=== PATIENT | female | born 1995 | race American Indian/Alaskan Native ===

== ENCOUNTER 2017-04-01 01:26 | Inpatient (IN) | payer MEDICAID, OTHER ==
[2017-04-01] MEDS ORDERED: Sodium Chloride 0.9% 1,000 ML IV ONE ×5 (02:27→10:10)
[2017-04-01 02:41] LABS: BASO % 0.7 % (0.0-2.0); EOS % 0.8 % (0.0-4.0); HEMATOCRIT 33.5 % (34.0-47.0); LYMPH # 2.1 K/uL (1.0-4.3); LYMPH % 33.5 % (20.0-40.0); MEAN CELL VOLUME 92.5 fL (81.0-99.0); MEAN CORPUSCULAR HGB CONC 32.5 g/dL (33.0-37.0); MEAN PLATELET VOLUME 7.6 fL (7.2-11.7); MONO # 0.8 K/uL (0.0-0.8); MONO % 12.8 % (0.0-10.0); RED CELL DISTRIBUTION WIDTH 14.9 % (11.5-14.5); WHITE BLOOD COUNT 6.3 K/uL (4.8-10.8)
[2017-04-01] MEDS ORDERED: Sodium Chloride 0.9% 1,000 ML ONE ×3 (02:42→06:34)
[2017-04-01] MEDS ORDERED: Iohexol 240 (50 ml) PO STA (02:44)
[2017-04-01 02:46] LABS: RBC URINE 3 /hpf (0-3); URINE BACTERIA RARE (<OCC); URINE BILIRUBIN NEGATIVE (NEGATIVE); URINE BLOOD NEGATIVE (NEGATIVE); URINE COLOR Amber (YELLOW); URINE GLUCOSE (UA) NORMAL (Normal); URINE KETONE TRACE mg/dL (NEGATIVE); URINE LEUKOCYTE ESTERASE 1+ Leu/uL (Negative); URINE PROTEIN 1+ mg/dL (NEGATIVE); WBC URINE 11 /hpf (0-5)
[2017-04-01 02:56] LABS: CHLORIDE 105 mmol/L (98-107); SODIUM 140 mmol/L (132-148)
[2017-04-01 02:57] LABS: POTASSIUM 3.7 mmol/L (3.6-5.2)
[2017-04-01 02:59] LABS: ALB/GLOB RATIO 0.9 (1.0-2.1); ALKALINE PHOSPHATASE 65 U/L (38-126); ALT/SGPT 21 U/L (9-52); AST/SGOT 20 U/L (14-36); BILIRUBIN,TOTAL 0.6 mg/dL (0.2-1.3); BLOOD UREA NITROGEN 5 mg/dL (7-17); CARBON DIOXIDE 25 mmol/L (22-30); GFR AFRICAN-AMERICAN > 60; GLUCOSE,RANDOM 86 mg/dL (65-105); TOTAL PROTEIN 7.8 g/dL (6.3-8.3)
--- NOTE | 2017-04-01 03:33 | C.PDOC ---
History Of Present Illness 21 y/o female with a hx of irregular menses and LMP late February, presents to the ER c/o sudden onset RLQ pain that began 14:00 this afternoon. Pain is non- radiating and constant associated with mild nausea. Patient denies vomiting, fever, chills, urinary symptoms, vaginal bleeding, or discharge. Time Seen by Provider: 04/01/17 01:30 Chief Complaint (Nursing): Abdominal Pain History Per: Patient History/Exam Limitations: no limitations Onset/Duration Of Symptoms: Hrs (14:00) Current Symptoms Are (Timing): Still Present Severity: Mild Location Of Pain/Discomfort: RLQ Radiation Of Pain To:: None Quality Of Discomfort: "Pain" Associated Symptoms: Nausea. denies: Fever, Chills, Vomiting Exacerbating Factors: None Alleviating Factors: None Recent travel outside of the [place]: No Additional History Per: Patient Abnormal Vaginal Bleeding: No Past Medical History Reviewed: Historical Data, Nursing Documentation, Vital Signs Vital Signs: Last Vital Signs Temp 97.4 F L 04/04/17 07:35 Pulse 62 04/04/17 07:35 Resp 18 04/04/17 07:35 BP 94/57 L 04/04/17 07:35 Pulse Ox 95 04/04/17 07:35 - Medical History PMH: Hyperthyroidism, Migraine, Seizures Family History: States: Unknown Family Hx - Social History Hx Tobacco Use: No Hx Alcohol Use: Yes Hx Substance Use: Yes - Immunization History Hx Tetanus Toxoid Vaccination: No Hx Influenza Vaccination: No Hx Pneumococcal Vaccination: No Review Of Systems Constitutional: Negative for: Fever, Chills Gastrointestinal: Positive for: Nausea, Abdominal Pain. Negative for: Vomiting Genitourinary: Negative for: Dysuria, Hematuria, Vaginal Discharge, Vaginal Bleeding Physical Exam - Physical Exam Appears: Non-toxic, In Acute Distress (Uncomfortable) Skin: Warm, Dry Head: Atraumatic, Normacephalic Cardiovascular: Rhythm Regular Respiratory: Normal Breath Sounds, No Rales, No Rhonchi, No Wheezing Gastrointestinal/Abdominal: Bowel Sounds (Normal bowel sounds), Soft, Tenderness (Bilateral lower abdominal pain, right greater than left) Back: Normal Inspection, No CVA Tenderness Pelvic: Vaginal Discharge (White discharge in the vault), Cervical Motion Tenderness (Mild), Adnexal Tenderness (Moderate right adnexal tenderness) Neurological/Psych: Oriented x3, Normal Speech, Normal Cognition ED Course And Treatment - Laboratory Results Result Diagrams: 04/02/17 06:16 04/02/17 06:16 O2 Sat by Pulse Oximetry: 98 (RA) Pulse Ox Interpretation: Normal - CT Scan/US UA Pelvic Other Rad Studies (CT/US): Interpreted By Me, Read By Radiologist CT/US Interpretation: EXAM: US Pelvis Complete, Transabdominal. EXAM DATE/TIME : 04/01/2017 3:32 AM. CLINICAL HISTORY: 21 years old, female; Pain; Pelvic pain; Additional info: Right adnexal tenderness. TECHNIQUE: Real-time transabdominal pelvic ultrasound (complete) with image documentation. COMPARISON: No relevant prior studies available. FINDINGS: Only transabdominal imaging was performed. The uterus measures 7 by 4 x 4 centimeters and is normal. The endometrium measures 11 mm. There is a large 16.8 x 9.7 x 14.2 cm complex cystic structure in the right adnexa containing internal. septations. There is avascular internal debris. There appears to be a thin rim of tissue however there. are no flow images of this region. A normal right ovary is not identified. The left ovary is normal and measures 3 x 2 x 3 cm. Color-flow vascular waveforms were. demonstrated to the left ovary. There is no significant free fluid. IMPRESSION: Large complex cystic structure right adnexa as described above. Normal right ovary not identified. This may represent a complex right ovarian cyst. Right ovarian torsion cannot be excluded excluded. as there are no images obtained demonstrating blood flow to right ovarian tissue. Paraovarian cyst. and abscess could also have a similar appearance. Transvaginal imaging was not able to be. performed. Consultation with [facility] CLE[facility]ER is recommended. Patient also reportedly had beta-hCG level. less than 2.4. Follow beta hCG levels are also recommended. Medical Decision Making Medical Decision Making: Impression: 21 y/o female c/o sudden onset RLQ pain that began 2pm this afternoon. Plans: * Labs * CT Abd/pel * Morphine * Omnipaque * US preg * IV fluids * US transvag * Admittance 616 am anjana mcgraw received approx 608 am; Dr Freitas called for consult. Dr Freitas at bedside 632 am Disposition Discussed With .: Bora Freitas Doctor Will See Patient In The: Hospital - Disposition Disposition: HOSPITALIZED Disposition Time: 06:47 Condition: SERIOUS - Clinical Impression Clinical Impression: Right ovarian cyst - Scribe Statement The provider has reviewed the documentation as recorded by the Scribe Antonio interiano All medical record entries made by the Scribe were at my direction and personally dictated by me. I have reviewed the chart and agree that the record accurately reflects my personal performance of the history, physical exam, medical decision making, and the department course for this patient. I have also personally directed, reviewed, and agree with the discharge instructions and disposition. Decision To Admit - Pt Status Changed To: Hospital Disposition Of: Inpatient - Admit Certification Admit to Inpatient:: After my assessment, the patient will require hospitalization for at least two midnights. This is because of the severity of symptoms shown, intensity of services needed, and/or the medical risk in this patient being treated as an outpatient. - InPatient: Physician Admission Certification:: pt requires surgery to assess mass and for torsion - . Bed Request Type: [facility] CLE[facility] Admitting Physician: Otilia Zepeda Patient Diagnosis: Right ovarian cyst
[2017-04-01] MEDS ORDERED: Iohexol 350mg/ml 100 ML ONE (04:36)
[2017-04-01] MEDS ORDERED: Iohexol 240 (50 ml) PO ONE (05:21)
[2017-04-01] MEDS ORDERED: Iohexol 240 (50 ml) ONE (05:33)
--- NOTE | 2017-04-01 06:06 | US ---
EXAM: US Pelvis Complete, Transabdominal EXAM DATE/TIME: 04/01/2017 3:32 AM CLINICAL HISTORY: 21 years old, female; Pain; Pelvic pain; Additional info: Right adnexal tenderness TECHNIQUE: Real-time transabdominal pelvic ultrasound (complete) with image documentation. COMPARISON: No relevant prior studies available. FINDINGS: Only transabdominal imaging was performed. The uterus measures 7 by 4 x 4 centimeters and is normal. The endometrium measures 11 mm. There is a large 16.8 x 9.7 x 14.2 cm complex cystic structure in the right adnexa containing internal septations. There is avascular internal debris. There appears to be a thin rim of tissue however there are no flow images of this region. A normal right ovary is not identified. The left ovary is normal and measures 3 x 2 x 3 cm. Color-flow vascular waveforms were demonstrated to the left ovary. There is no significant free fluid. IMPRESSION: Large complex cystic structure right adnexa as described above. Normal right ovary not identified. This may represent a complex right ovarian cyst. Right ovarian torsion cannot be excluded excluded as there are no images obtained demonstrating blood flow to right ovarian tissue. Paraovarian cyst and abscess could also have a similar appearance. Transvaginal imaging was not able to be performed. Consultation with [facility] [employer] [employer] is recommended. Patient also reportedly had beta-hCG level less than 2.4. Follow beta hCG levels are also recommended.
--- NOTE | 2017-04-01 06:52 | CP.PCM.HP ---
History of Present Illness - History of Present Illness History of Present Illness: 21 [id number] came with c/o abdominal pain started at 2 pm, got worse with time.in the night it was 10/10 so patient came to er. no n/v.no discharge no other com. obhx 1 x pmh den med none All amoxcillin psh knee surgery soc smoking+ sono 16.8 x 9.7x 14.2 cm complex cystic strucure in right adenxa torsion cannot ruled out abd soft, tender+, +guarding Present on Admission - Present on Admission Any Indicators Present on Admission: No History of DVT/PE: No History of Uncontrolled Diabetes: No Urinary Catheter: No Decubitus Ulcer Present: No Review of Systems - Gastrointestinal Gastrointestinal: Abdominal Pain Past Patient History - Infectious Disease Hx of Infectious Diseases: None - Past Social History Smoking Status: Light Smoker < 10 Cigarettes Daily - NEUROLOGICAL Hx Migraine: Yes Hx Seizures: Yes - ENDOCRINE/METABOLIC Hx Hyperthyroidism: Yes - PSYCHIATRIC Hx Substance Use: Yes - SURGICAL HISTORY Hx Orthopedic Surgery: Yes (left knee) Meds Allergies/Adverse Reactions: Allergies Allergy/AdvReac Type Severity Reaction Status Date / Time amoxicillin Allergy Verified 04/01/17 01:58 strawberry Allergy Verified 04/01/17 01:58 Physical Exam - Constitutional Appears: In Acute Distress - Exam External exam: NORMAL EXTERNAL EXAM Speculum exam: NORMAL SPECULUM EXAM Bimanual exam: Adenexal Mass, Cervical Motion Tendernes, Uterine Tenderness - Extremities Exam Extremities exam: Positive for: normal inspection Results - Vital Signs Recent Vital Signs: Last Vital Signs Temp 97.6 F 04/01/17 05:20 Pulse 71 04/01/17 05:52 Resp 18 04/01/17 05:52 BP 111/69 04/01/17 05:52 Pulse Ox 98 04/01/17 06:34 - Labs Result Diagrams: 04/01/17 02:35 04/01/17 02:35 Labs: Laboratory Results - last 24 hr 04/01/17 04/01/17 04/01/17 02:27 02:35 02:35 WBC 6.3 RBC 3.62 L Hgb 10.9 L Hct 33.5 L MCV 92.5 MCH 30.0 MCHC 32.5 L RDW 14.9 H Plt Count 329 MPV 7.6 Neut % (Auto) 52.2 Lymph % (Auto) 33.5 [place] % (Auto) 12.8 H Eos % (Auto) 0.8 Baso % (Auto) 0.7 Neut # 3.3 Lymph # 2.1 [place]ett # 0.8 Eos # 0.0 Baso # 0.0 Sodium 140 Potassium 3.7 Chloride 105 Carbon Dioxide 25 Anion Gap 14 BUN 5 L Creatinine 0.7 Est GFR ( Amer) > 60 Est GFR (Non-Af Amer) > 60 Random Glucose 86 Calcium 9.0 Total Bilirubin 0.6 AST 20 ALT 21 Alkaline Phosphatase 65 Total Protein 7.8 Albumin 3.8 Globulin 4.1 H Albumin/Globulin Ratio 0.9 L Beta HCG, Quant Urine Color Marie Urine Clarity Hazy Urine pH 5.0 Ur Specific [place] 1.025 Urine Protein 1+ H Urine Glucose (UA) Normal Urine Ketones Trace Urine Blood Negative Urine Nitrate Negative Urine Bilirubin Negative Urine Urobilinogen 2.0 H Ur Leukocyte Esterase 1+ H Urine WBC (Auto) 11 H Urine RBC (Auto) 3 Ur Squamous Epith Cells 22 H Urine Bacteria Rare 04/01/17 02:53 WBC RBC Hgb Hct MCV MCH MCHC RDW Plt Count MPV Neut % (Auto) Lymph % (Auto) [place] % (Auto) Eos % (Auto) Baso % (Auto) Neut # Lymph # [place] # Eos # Baso # Sodium Potassium Chloride Carbon Dioxide Anion Gap BUN Creatinine Est GFR ( Amer) Est GFR (Non-Af Amer) Random Glucose Calcium Total Bilirubin AST ALT Alkaline Phosphatase Total Protein Albumin Globulin Albumin/Globulin Ratio Beta HCG, Quant < 2.39 Urine Color Urine Clarity Urine pH Ur Specific [place] Urine Protein Urine Glucose (UA) Urine Ketones Urine Blood Urine Nitrate Urine Bilirubin Urine Urobilinogen Ur Leukocyte Esterase Urine WBC (Auto) Urine RBC (Auto) Ur Squamous Epith Cells Urine Bacteria Assessment & Plan - Assessment and Plan (Free Text) Assessment: 21 [id number] with abdominal pain rigt adenxal mas cannot ruled out torsion Plan: admit to for EX lap right ovarian cystectomy poss rso no/ivf labs OR tellez type and tanmay tumor marker Dedeesia aware Dr Zepeda will take informed consent - Date & Time Date: 04/01/17 Time: 06:55
[2017-04-01 07:00] LABS: INR 1.1
[2017-04-01 07:56] LABS: CARCINOEMBRYONIC ANTIGEN 3.9 ng/mL (0-3.0)
[2017-04-01 08:47] LABS: CA 19-9 20.2 U/mL (0-37)
[2017-04-01] MEDS ORDERED: Midazolam 2 MG/2 ML VIAL ONE (09:51)
[2017-04-01] MEDS ORDERED: Propofol 10 mg/ml Inj (20 ML) ONE (09:51)
[2017-04-01] MEDS ORDERED: Succinylcholine Chloride 20 mg/ml Syr (5 ml) IV ONE (09:52)
[2017-04-01] MEDS ORDERED: Rocuronium 10 mg/ml (5 ml) ONE (09:52)
[2017-04-01] MEDS ORDERED: cefOXitin IV 2 gm in Dextrose 0 GM/0 ML BAG IVPB ONE (10:15)
[2017-04-01] MEDS ORDERED: Lactated Ringer's 1,000 ML IV ONE ×5 (10:20→17:56)
[2017-04-01] MEDS ORDERED: Clindamycin 600mg/50ml NS 600 MG/50 ML BAG IVPB ONE (11:01)
[2017-04-01] MEDS ORDERED: Morphine 4 MG/ML VIAL ONE (12:08)
[2017-04-01] MEDS ORDERED: HYDROmorphone 0.5 mg/0.5 ml ISec ONE (12:52)
[2017-04-01] MEDS: HYDROmorphone 0.5 mg/0.5 ml ISec IVP PRN ×2 (12:53→13:38)
[2017-04-01] MEDS ORDERED: Morphine Monoject Barrel PCA 1mg/ml IV PRN (14:42)
--- NOTE | 2017-04-01 21:54 | PCM.SURG1 ---
Surgeon's Initial Post Op Note - Surgeon's Notes Surgeon: Otilia Zepeda MD Optical Element Coater: Dr. Deshpande Type of Anesthesia: General Endo Anesthesia Administered By: Bryant Cortes MD Pre-Operative Diagnosis: Right ovarian torsion Operative Findings: Right ovarian cyst with 1 1/2 revolutions - 16 x 14 x 14 cm. 1,000mL cyst fluid. Cyst opened on O.R. table - hair and sebum noted. Normal fallopian tubes bilaterally; normal left ovary. Normal uterus - approx 6 x 5 x 4 cm Post-Operative Diagnosis: Right ovarian torsion. Right dermoid cyst Operation Performed: Untwisting of right ovarian cyst. Right ovarian cystectomy Specimen/Specimens Removed: 1) peritoneal washings. 2) cyst fluid. 3) portions of right ovarian wall. 4) (dermoid) cyst Estimated Blood Loss: EBL {In ML}: 150 (IVFs 2000mL; U.O 500 mL) Blood Products Given: N/A Drains Used: No Drains Post-Op Condition: Good Date of Surgery/Procedure: 04/01/17 Time of Surgery/Procedure: 12:45
--- NOTE | 2017-04-02 00:20 | CP.PCM.PN ---
Subjective - Date & Time of Evaluation Date of Evaluation: 04/01/17 Time of Evaluation: 21:30 - Subjective Subjective: Patient received in bed, room 662A: reports abdominal pain, pain scale 7/10 "much better than the pain I had before" Denies nausea or vomiting after clear liquid diet. Not yet out of bed. Objective - Vital Signs/Intake and Output Vital Signs (last 24 hours): Temp Pulse Resp BP Pulse Ox 98.7 F 69 20 100/79 99 04/01/17 23:00 04/01/17 23:00 04/01/17 23:00 04/01/17 23:00 04/01/17 23:00 Intake and Output: 04/01/17 04/02/17 18:59 06:59 Intake Total 50 Output Total 675 1700 Balance -625 -1700 - Medications Medications: Current Medications Lactated Ringer's (Lactated Ringer's) 1,000 mls @ 75 mls/hr IV .[id number] ONE Stop: 04/02/17 07:15 Last Admin: 04/01/17 22:28 Dose: 75 mls/hr Ibuprofen (Motrin Tab) 800 mg PO Q6 PRN PRN Reason: Pain, Mild (1-3) Morphine Sulfate/Sodium Chloride (Morphine Tester/Lift Trucker Monoject Barrel) 30 mg IV Q4H PRN; Protocol PRN Reason: Pain, moderate (4-7) Last Admin: 04/01/17 15:58 Dose: 30 mg Ondansetron HCl (Zofran Inj) 4 mg IVP Q8H PRN PRN Reason: Nausea/Vomiting Oxycodone/Acetaminophen (Percocet 5/325 Mg Tab) 2 tab PO Q6H PRN PRN Reason: Pain, severe (8-10) Stop: 04/04/17 14:33 Oxycodone/Acetaminophen (Percocet 5/325 Mg Tab) 1 tab PO Q4H PRN PRN Reason: Pain, moderate (4-7) Stop: 04/04/17 14:33 - Labs Labs: PT 11.8 SECONDS (9.7-12.2) 04/01/17 06:48 INR 1.1 04/01/17 06:48 APTT 30 SECONDS (21-34) 04/01/17 06:48 - Constitutional Appears: Well, No Acute Distress - Head Exam Head Exam: NORMAL INSPECTION - ENT Exam ENT Exam: Mucous Membranes Moist - Neck Exam Neck Exam: Full ROM - Respiratory Exam Respiratory Exam: NORMAL BREATHING PATTERN - Cardiovascular Exam Cardiovascular Exam: REGULAR RHYTHM - GI/Abdominal Exam GI & Abdominal Exam: Soft (Dressing clean and dry) - Extremities Exam Extremities Exam: Normal Inspection (Venodynes in place. Cam draining clear urine) Assessment and Plan - Assessment and Plan (Free Text) Assessment: POD#0 21 y.o P1. S/P ex lap with untwisting of right ovarian torsion, aspiration of cystic fluid and right ovarian cystectomy - findings suggestive of dermoid cyst. Currently, afebrile, vital signs stable. Findings at surgery , and procedure performed were reviewed with patient; her concerns and questions were addressed and answered. Patient gave advertising copywriter permission to discuss operative findings with her mother; Mrs. Rueda called and spoke with at approximately 2300 hours: findings discussed with her. Patient encouraged to OOB and ambulate starting in the morning of 04/02/17. Patient is clinically stable. Plan: 1) Post op management, as per orders
[2017-04-02 06:55] LABS: BASO % 0.2 % (0.0-2.0); EOS % 0.1 % (0.0-4.0); LYMPH # 1.8 K/uL (1.0-4.3); LYMPH % 17.8 % (20.0-40.0); MEAN CELL VOLUME 92.2 fL (81.0-99.0); MEAN CORPUSCULAR HEMOGLOBIN 29.7 pg (27.0-31.0); MEAN CORPUSCULAR HGB CONC 32.2 g/dL (33.0-37.0); MEAN PLATELET VOLUME 8.3 fL (7.2-11.7); MONO # 1.3 K/uL (0.0-0.8); MONO % 12.8 % (0.0-10.0); NRBC % 0.1 % (0.0-2.0)
[2017-04-02 06:59] LABS: CHLORIDE 105 mmol/L (98-107)
[2017-04-02 07:00] LABS: POTASSIUM 3.8 mmol/L (3.6-5.2); SODIUM 137 mmol/L (132-148)
[2017-04-02 07:02] LABS: CARBON DIOXIDE 24 mmol/L (22-30); GFR AFRICAN-AMERICAN > 60
[2017-04-02 07:03] LABS: ALB/GLOB RATIO 0.8 (1.0-2.1); ALKALINE PHOSPHATASE 53 U/L (38-126); ALT/SGPT 23 U/L (9-52); AST/SGOT 18 U/L (14-36); BILIRUBIN,TOTAL 0.4 mg/dL (0.2-1.3); BLOOD UREA NITROGEN 2 mg/dL (7-17); CALCIUM 8.2 mg/dl (8.6-10.4); GLUCOSE,RANDOM 87 mg/dL (65-105); TOTAL PROTEIN 6.2 g/dL (6.3-8.3)
[2017-04-02] MEDS: Oxycodone/Acetaminophen 5/325 mg Tab PO PRN ×2 (10:36→17:26)
--- NOTE | 2017-04-02 12:22 | OP ---
PROCEDURE DATE: 04/01/2017 SURGEON: Dr. Otilia Zepeda FISHER SPEAR: Dr. Deshpande ANESTHESIA TYPE: General with endotracheal intubation. ANESTHESIOLOGIST: Dr. Bryant Cortes PREOPERATIVE DIAGNOSIS: Right ovarian torsion. POSTOPERATIVE DIAGNOSIS: Right ovarian torsion; right dermoid cyst. OPERATIVE FINDINGS: Right ovarian cyst with one and half revolution, approximately 16 x 14 x 14 cm; 1000 mL of cystic fluid were aspirated. The cyst was opened on operating room table, hair and sebum were noted. Normal fallopian tubes bilaterally with a normal left ovary. Normal sized uterus, approximately 6 x 5 x 4 cm. OPERATIONS PERFORMED: Untwisting of the right ovarian pedicle and right ovarian cystectomy. SPECIMENS: 1. Peritoneal washings. 2. Cystic fluid. 3. Portions of right ovarian wall. 4. Dermoid cyst. ESTIMATED BLOOD LOSS: 150 mL. INTRAVENOUS FLUID: 2000 mL. URINE OUTPUT: 500 mL. BLOOD PRODUCTS: None. COMPLICATIONS: None. DESCRIPTION OF PROCEDURE: The patient was taken to the operating room after having obtained informed consent for the anticipated procedure. This included a discussion of risks and possible complications including, but not limited to infection requiring antibiotics, hemorrhage requiring blood transfusion, repair of any damage to internal organs, removal of all diseased tissue. The patient offered no questions and consents were signed, dated, witnessed and placed in the chart. She was escorted to the operating where general anesthesia with endotracheal intubation was performed without incident. The patient received clindamycin 600 mg via IV piggyback. A Cam catheter was inserted under sterile condition. The abdomen was prepped and she was subsequently draped in the usual sterile fashion. A low transverse incision was made on the abdomen. The incision was carried down through the subcutaneous tissue using the Bovie electrocautery. The fascia was identified, it was nicked in the midline and the incision was extended bilaterally, also using the Bovie electrocautery. The rectus muscle was dissected off the overlying fascia. The rectus muscle was in the midline by blunt dissection and the peritoneal cavity was entered, also by blunt dissection. Upon entering the abdominal cavity, pearly-white appearance of the ovarian complex was noted. Peritoneal washings were obtained, and submitted to pathology as listed as above. Attempts to deliver the ovarian complex proved unsuccessful. At this point, it was decided to aspirate the cystic fluid. Approximately 580 mL of clear, straw-colored fluid was aspirated, initially. At this time, the ovarian complex was able to be delivered through the abdominal incision. Just prior to delivering this, hair was actually noted to be exuding from the aperture from which the cystic fluid had been aspirated. On the operative, the complex was wrapped with moist lap pads to soak up any additional spillage. At this point in time, the thought was that this was a dermoid cyst. Of note: there was noted to be the true revolution of the ovarian pedicle as decribed above. The complex was untwisted , and all tissue of the infundibulopelvic ligaments, ovarian ligament and round ligament were pink. There was no evidence of any compromise of ovarian blood flow. Once on the operative field, the ovarian capsule was incised using scalpel. Using the Metzenbaum scissors, the plane between the cyst wall and the tunica albuginea was identified. The incision was extended and using serial traction and countertraction, the ovarian cyst was enucleated intact and without any further leaking of cystic fluid. Two Carmalt clamps were placed at the base of the ovarian pedicle and the cyst was removed intact. The bed of the ovary on the right was cauterized and FloSeal was applied to assure hemostasis. A significant portion of the attenuated ovarian wall, the tunica albuginea was excised. The remaining portion of the right ovary was then closed using 2-0 Vicryl in a running manner. Using a Yannick clamp, examination of the left adnexa ensued with the normal findings to left ovary and fallopian tube and the uterus was noted to be as described above. Copious irrigation of 3000 mL of warm normal saline ensued and adequate hemostasis was assured. The parietal peritoneum was then reapproximated using 2-0 chromic in a running fashion. The muscle was reapproximated in the midline using 2-0 chromic in a running fashion. The fascia was reapproximated using 0 Vicryl in a running fashion, and the skin was reapproximated using surgical clips. Pressure dressing was applied. The patient was extubated. She was transferred to the PACU in stable condition. She tolerated the procedure well. Dr. Deshpande was present throughout the entire procedure from beginning to end. His presence was necessary for: 1) adequate visualization of the operative field at all times 2) assisting in the enucleation of the cyst without spillage 3) assuring adequate hemostasis throughout the procedure. Otilia Zepeda MD LINDA
--- NOTE | 2017-04-02 13:01 | CP.PCM.PN ---
<ABRAHANLISSETTE - Last Filed: 04/02/17 13:02> Subjective - Date & Time of Evaluation Date of Evaluation: 04/02/17 Time of Evaluation: 11:45 - Subjective Subjective: Lissette Centeno PGY1 [employer] Note for Dr. Genaro Diggs Patient was seen and examined at bedside. Pt states that she is still in pain, and states that the morphine makes her feel funny, however, the Percocet hasn't been working. Pt states that she sat up on the side of the bed and when she went to sit down, had pain across her abdomen and to her back. Pt also states that the patel was just taken out, and denies any urgency. Denies cp, fevers, chills, n/v/d. no BM yet but is passing flatus. Pt states that her private ObGyn is Dr. Doll. Objective - Vital Signs/Intake and Output Vital Signs (last 24 hours): Temp Pulse Resp BP Pulse Ox 98.8 F 62 18 92/53 L 99 04/02/17 07:20 04/02/17 07:20 04/02/17 07:20 04/02/17 07:20 04/02/17 07:20 Intake and Output: 04/02/17 04/02/17 06:59 18:59 Output Total 3300 800 Balance -3300 -800 - Medications Medications: Current Medications Ibuprofen (Motrin Tab) 800 mg PO Q6 PRN PRN Reason: Pain, Mild (1-3) Ketorolac Tromethamine (Toradol) 30 mg IVP STAT STA Stop: 04/02/17 12:54 Ondansetron HCl (Zofran Inj) 4 mg IVP Q8H PRN PRN Reason: Nausea/Vomiting Oxycodone/Acetaminophen (Percocet 5/325 Mg Tab) 2 tab PO Q6H PRN PRN Reason: Pain, severe (8-10) Stop: 04/04/17 14:33 Last Admin: 04/02/17 10:36 Dose: 2 tab Oxycodone/Acetaminophen (Percocet 5/325 Mg Tab) 1 tab PO Q4H PRN PRN Reason: Pain, moderate (4-7) Stop: 04/04/17 14:33 Pneumococcal Polyvalent Vaccine (Pneumovax 23 Vaccine) 0.5 ml IM .ONCE ONE Stop: 04/03/17 10:01 - Labs Labs: 04/02/17 06:16 04/02/17 06:16 PT 11.8 SECONDS (9.7-12.2) 04/01/17 06:48 INR 1.1 04/01/17 06:48 APTT 30 SECONDS (21-34) 04/01/17 06:48 - Constitutional Appears: Well, No Acute Distress - Head Exam Head Exam: ATRAUMATIC, NORMAL INSPECTION, NORMOCEPHALIC - Eye Exam Eye Exam: EOMI, Normal appearance, PERRL - ENT Exam ENT Exam: Mucous Membranes Moist - Neck Exam Neck Exam: Full ROM, Normal Inspection - Respiratory Exam Respiratory Exam: Clear to Ausculation Bilateral, NORMAL BREATHING PATTERN. absent: Accessory Muscle Use, Respiratory Distress - Cardiovascular Exam Cardiovascular Exam: RRR, +S1, +S2 - GI/Abdominal Exam GI & Abdominal Exam: Distended, Tenderness (diffuse), Hypoactive Bowel Sounds. absent: Firm Additional comments: rosy in place incision was c/d/i - Exam Additional comments: no patel - Extremities Exam Extremities Exam: absent: Calf Tenderness, Pedal Edema, Tenderness - Neurological Exam Neurological Exam: Alert, Awake, Oriented x3 - Psychiatric Exam Psychiatric exam: Normal Affect, Normal Mood - Skin Skin Exam: Normal Color, Warm Assessment and Plan - Assessment and Plan (Free Text) Assessment: 21F s/o ex lap with untwisting of right ovarian torsion, aspiration of cystic fluid and right ovarian cystectomy for dermoid cyst and ovarian torison. POD 1 Plan: 1. s/p ex lap - vitals and labs stable, H/H: 06/08 - Apply abdominal band - pain mgmt: Toradol x1, Percocet and Motrin; Morphine General Manager d/c - Advance diet as tolerated - Ambulate as tolerated - Incentive spirometer encouraged Regular Diet Zofran PRN nausea Patient was seen, examined and discussed with attending, Dr. Dontae Centeno PGY1 <Elizabeth Diggs - Last Filed: 04/02/17 14:11> Objective - Vital Signs/Intake and Output Vital Signs (last 24 hours): Temp Pulse Resp BP Pulse Ox 98.8 F 62 18 92/53 L 99 04/02/17 07:20 04/02/17 07:20 04/02/17 07:20 04/02/17 07:20 04/02/17 07:20 Intake and Output: 04/02/17 04/02/17 06:59 18:59 Output Total 3300 800 Balance -3300 -800 - Medications Medications: Current Medications Ibuprofen (Motrin Tab) 800 mg PO Q6 PRN PRN Reason: Pain, Mild (1-3) Ondansetron HCl (Zofran Inj) 4 mg IVP Q8H PRN PRN Reason: Nausea/Vomiting Last Admin: 04/02/17 13:53 Dose: 4 mg Oxycodone/Acetaminophen (Percocet 5/325 Mg Tab) 2 tab PO Q6H PRN PRN Reason: Pain, severe (8-10) Stop: 04/04/17 14:33 Last Admin: 04/02/17 10:36 Dose: 2 tab Oxycodone/Acetaminophen (Percocet 5/325 Mg Tab) 1 tab PO Q4H PRN PRN Reason: Pain, moderate (4-7) Stop: 04/04/17 14:33 Pneumococcal Polyvalent Vaccine (Pneumovax 23 Vaccine) 0.5 ml IM .ONCE ONE Stop: 04/03/17 10:01 - Labs Labs: 04/02/17 06:16 04/02/17 06:16 PT 11.8 SECONDS (9.7-12.2) 04/01/17 06:48 INR 1.1 04/01/17 06:48 APTT 30 SECONDS (21-34) 04/01/17 06:48 Assessment and Plan - Assessment and Plan (Free Text) Plan: agree with above pt seen and examied with [facility] pt reports pain over incsion, toleable better than prior to srugery pt denies any ligthheadnd,d izzyness, CP, SOB VSSPE see above s/p Ex Lap POD#1 william mann plan as above
[2017-04-03] MEDS: Oxycodone/Acetaminophen 5/325 mg Tab PO PRN ×5 (00:03→21:06)
[2017-04-03] MEDS ORDERED: Pneumococcal 23-Valent Vaccine IM ONE (10:00)
--- NOTE | 2017-04-03 10:35 | CP.PCM.PN ---
Subjective - Date & Time of Evaluation Date of Evaluation: 04/03/17 Time of Evaluation: 10:00 - Subjective Subjective: Patient in bed, room 662A, best friend present. Reports incisional pain improved since yesterday. (+) ambulating; (+) voiding; (+) flatus; (-) BM. Denies nausea or vomiting; dizziness or lightheadedness Objective - Vital Signs/Intake and Output Vital Signs (last 24 hours): Temp Pulse Resp BP Pulse Ox 98.4 F 82 16 105/68 100 04/03/17 07:25 04/03/17 07:25 04/03/17 07:25 04/03/17 07:25 04/03/17 07:25 - Medications Medications: Current Medications Ibuprofen (Motrin Tab) 800 mg PO Q6 PRN PRN Reason: Pain, Mild (1-3) Ondansetron HCl (Zofran Inj) 4 mg IVP Q8H PRN PRN Reason: Nausea/Vomiting Last Admin: 04/03/17 01:41 Dose: 4 mg Oxycodone/Acetaminophen (Percocet 5/325 Mg Tab) 2 tab PO Q6H PRN PRN Reason: Pain, severe (8-10) Stop: 04/04/17 14:33 Last Admin: 04/03/17 06:48 Dose: 2 tab Oxycodone/Acetaminophen (Percocet 5/325 Mg Tab) 1 tab PO Q4H PRN PRN Reason: Pain, moderate (4-7) Stop: 04/04/17 14:33 Topiramate (Topamax) 25 mg PO BID JEANNIE Last Admin: 04/03/17 09:24 Dose: 25 mg - Labs Labs: 04/02/17 06:16 04/02/17 06:16 PT 11.8 SECONDS (9.7-12.2) 04/01/17 06:48 INR 1.1 04/01/17 06:48 APTT 30 SECONDS (21-34) 04/01/17 06:48 - Constitutional Appears: Well, No Acute Distress - Head Exam Head Exam: NORMAL INSPECTION - Eye Exam Eye Exam: Normal appearance - Neck Exam Neck Exam: Full ROM - Respiratory Exam Respiratory Exam: Clear to Ausculation Bilateral, NORMAL BREATHING PATTERN - Cardiovascular Exam Cardiovascular Exam: REGULAR RHYTHM - GI/Abdominal Exam GI & Abdominal Exam: Normal Bowel Sounds Additional comments: Soft. non distended. (+) tenderness in area cerca de incision. Incision with rosy clean, dry and intact. No vaginal bleeding - Extremities Exam Extremities Exam: Full ROM, Normal Inspection - Neurological Exam Neurological Exam: Alert, Awake, Oriented x3 - Psychiatric Exam Psychiatric exam: Normal Affect, Normal Mood - Skin Skin Exam: Dry, Intact, Normal Color, Warm Assessment and Plan (1) Torsion of right ovary and ovarian pedicle Assessment & Plan: S/P untwisting of ovarian pedicle - normal ovarian pedicle and viscera - stable, nothing to do Status: Resolved (2) Dermoid cyst of right ovary Assessment & Plan: S/P right ovarian cystectomy Tumor markers negative except CEA mildly elevated at 3.9 (cut-off 3.0) - nothing to do Status: Resolved - Assessment and Plan (Free Text) Assessment: POD#2, 21 yo P1001, S/P expl lap with right ovarian cystectomy for right dermoid cyst, and untwisting of right ovarian pedicle for ovarian torsion. Returning GI and functions. Pain well controlled on current regimen. Mild anemia - asymptomatic and hemodynamically stable. Findings at surgery again reviewed with patient. Patient is clinically stable. Plan: Patient may shower Continue ambulation Continue present medications/management Anticipate discharge home 04/04/17
[2017-04-03] MEDS: Simethicone 80 mg Chewtab PO SCH ×2 (17:17→21:07)
[2017-04-04] MEDS: Oxycodone/Acetaminophen 5/325 mg Tab PO PRN (03:27)
[2017-04-04 08:30] VITALS: BP 94/57; PULSE 62; RESP 18; TEMP 97.4
[2017-04-04] MEDS: Simethicone 80 mg Chewtab PO SCH ×3 (09:33→18:04)
--- NOTE | 2017-04-04 17:17 | CP.PCM.PN ---
Subjective - Date & Time of Evaluation Date of Evaluation: 04/04/17 Time of Evaluation: 17:10 - Subjective Subjective: pt seen and examined and reports pain controlled wiht medication. pt dneies any fevers, chills, nasue, vomiting, CP, SOB pt is ambuating, toleratng regular diet, passing flatus, +BM. denie any dizzyness, lightheadness, vaginal bleeding Objective - Vital Signs/Intake and Output Vital Signs (last 24 hours): Temp Pulse Resp BP Pulse Ox 97.4 F L 62 18 94/57 L 95 04/04/17 07:35 04/04/17 07:35 04/04/17 07:35 04/04/17 07:35 04/04/17 07:35 Intake and Output: 04/04/17 04/04/17 06:59 18:59 Intake Total 600 Balance 600 - Medications Medications: Current Medications Docusate Sodium (Colace) 100 mg PO BID [facility] Last Admin: 04/04/17 09:32 Dose: 100 mg Ibuprofen (Motrin Tab) 800 mg PO Q6 PRN PRN Reason: Pain, Mild (1-3) Last Admin: 04/04/17 15:55 Dose: 800 mg Ondansetron HCl (Zofran Inj) 4 mg IVP Q8H PRN PRN Reason: Nausea/Vomiting Last Admin: 04/04/17 08:41 Dose: 4 mg Simethicone (Mylicon Chew Tab) 80 mg PO QID [facility] Last Admin: 04/04/17 14:05 Dose: 80 mg Topiramate (Topamax) 25 mg PO BID [facility] Last Admin: 04/04/17 09:32 Dose: 25 mg - Labs Labs: 04/02/17 06:16 04/02/17 06:16 PT 11.8 SECONDS (9.7-12.2) 04/01/17 06:48 INR 1.1 04/01/17 06:48 APTT 30 SECONDS (21-34) 04/01/17 06:48 - Constitutional Appears: Well, Non-toxic - Head Exam Head Exam: ATRAUMATIC, NORMAL INSPECTION - Eye Exam Eye Exam: EOMI, Normal appearance Pupil Exam: NORMAL ACCOMODATION - ENT Exam ENT Exam: Mucous Membranes Moist, Normal Exam - Neck Exam Neck Exam: Full ROM, Normal Inspection - Respiratory Exam Respiratory Exam: Clear to Ausculation Bilateral, NORMAL BREATHING PATTERN - Cardiovascular Exam Cardiovascular Exam: +S1, +S2 - GI/Abdominal Exam GI & Abdominal Exam: Soft, Normal Bowel Sounds Additional comments: NT, No guarding, no reboudn tenderness, no rigidty, +BS Incsion C/D/I, healing well no vaignal bleeding - Extremities Exam Extremities Exam: Full ROM, Normal Capillary Refill, Normal Inspection Additional comments: no calf tenderness b/l, ngative alvaro's sign - Back Exam Back Exam: NORMAL INSPECTION - Neurological Exam Neurological Exam: CN II-XII Intact, Normal Gait, Oriented x3 - Psychiatric Exam Psychiatric exam: Normal Affect, Normal Mood - Skin Skin Exam: Dry, Intact, Normal Color, Warm Assessment and Plan (1) Right ovarian cyst Assessment & Plan: s/p ex lap ovarian cytecotmy POD #3 with asymaptomc blood loss anemia, currently stable requesting dishcarge d/c home f/u clinic this wek brandt soto check precautins given Status: Acute
--- NOTE | 2017-04-04 17:23 | CP.PCM.DIS ---
Provider - Provider Date of Admission: 04/01/17 06:44 Attending physician: Otilia Zepeda MD Time Spent in preparation of Discharge (in minutes): 30 Diagnosis - Discharge Diagnosis (1) Right ovarian cyst Status: Acute Priority: Low Hospital Course - Lab Results Lab Results: Most Recent Lab Values WBC 10.0 K/uL (4.8-10.8) D 04/02/17 06:16 RBC 3.36 Mil/uL (3.80-5.20) L 04/02/17 06:16 Hgb 10.0 g/dL (11.0-16.0) L 04/02/17 06:16 Hct 31.0 % (34.0-47.0) L 04/02/17 06:16 MCV 92.2 fL (81.0-99.0) 04/02/17 06:16 MCH 29.7 pg (27.0-31.0) 04/02/17 06:16 MCHC 32.2 g/dL (33.0-37.0) L 04/02/17 06:16 RDW 15.0 % (11.5-14.5) H 04/02/17 06:16 Plt Count 274 K/uL (130-400) 04/02/17 06:16 MPV 8.3 fL (7.2-11.7) 04/02/17 06:16 Neut % (Auto) 69.1 % (50.0-75.0) 04/02/17 06:16 Lymph % (Auto) 17.8 % (20.0-40.0) L 04/02/17 06:16 [place] % (Auto) 12.8 % (0.0-10.0) H 04/02/17 06:16 Eos % (Auto) 0.1 % (0.0-4.0) 04/02/17 06:16 Baso % (Auto) 0.2 % (0.0-2.0) 04/02/17 06:16 Neut # 6.9 K/uL (1.8-7.0) 04/02/17 06:16 Lymph # 1.8 K/uL (1.0-4.3) 04/02/17 06:16 [place] # 1.3 K/uL (0.0-0.8) H 04/02/17 06:16 Eos # 0.0 K/uL (0.0-0.7) 04/02/17 06:16 Baso # 0.0 K/uL (0.0-0.2) 04/02/17 06:16 PT 11.8 SECONDS (9.7-12.2) 04/01/17 06:48 INR 1.1 04/01/17 06:48 APTT 30 SECONDS (21-34) 04/01/17 06:48 Sodium 137 mmol/L (132-148) 04/02/17 06:16 Potassium 3.8 mmol/L (3.6-5.2) 04/02/17 06:16 Chloride 105 mmol/L (98-107) 04/02/17 06:16 Carbon Dioxide 24 mmol/L (22-30) 04/02/17 06:16 Anion Gap 12 (10-20) 04/02/17 06:16 BUN 2 mg/dL (7-17) L 04/02/17 06:16 Creatinine 0.6 MG/DL (0.7-1.2) L 04/02/17 06:16 Est GFR ( Amer) > 60 04/02/17 06:16 Est GFR (Non-Af Amer) > 60 04/02/17 06:16 Random Glucose 87 mg/dL (65-105) 04/02/17 06:16 Calcium 8.2 mg/dl (8.6-10.4) L 04/02/17 06:16 Total Bilirubin 0.4 mg/dL (0.2-1.3) 04/02/17 06:16 AST 18 U/L (14-36) 04/02/17 06:16 ALT 23 U/L (9-52) 04/02/17 06:16 Alkaline Phosphatase 53 U/L (38-126) 04/02/17 06:16 Total Protein 6.2 g/dL (6.3-8.3) L 04/02/17 06:16 Albumin 2.8 g/dL (3.5-5.0) L D 04/02/17 06:16 Globulin 3.4 gm/dL (2.2-3.9) 04/02/17 06:16 Albumin/Globulin Ratio 0.8 (1.0-2.1) L 04/02/17 06:16 Alpha Fetoprotein 2.7 ng/mL (0.0-7.5) 04/01/17 07:07 Carcinoembryonic Ag 3.9 ng/mL (0-3.0) H 04/01/17 07:07 CA 19-9 Antigen 20.2 U/mL (0-37) 04/01/17 07:07 CA 125 Antigen 9.4 U/mL (0-35) 04/01/17 07:07 Beta HCG, Quant < 2.39 mIU/ML 04/01/17 02:53 Urine Color Marie (YELLOW) 04/01/17 02:27 Urine Clarity Hazy (Clear) 04/01/17 02:27 Urine pH 5.0 (5.0-8.0) 04/01/17 02:27 Ur Specific [place] 1.025 (1.003-1.030) 04/01/17 02:27 Urine Protein 1+ mg/dL (NEGATIVE) H 04/01/17 02:27 Urine Glucose (UA) Normal mg/dL (Normal) 04/01/17 02:27 Urine Ketones Trace mg/dL (NEGATIVE) 04/01/17 02:27 Urine Blood Negative (NEGATIVE) 04/01/17 02:27 Urine Nitrate Negative (NEGATIVE) 04/01/17 02:27 Urine Bilirubin Negative (NEGATIVE) 04/01/17 02:27 Urine Urobilinogen 2.0 mg/dL (0.2-1.0) H 04/01/17 02:27 Ur Leukocyte Esterase 1+ Sen/uL (Negative) H 04/01/17 02:27 Urine WBC (Auto) 11 /hpf (0-5) H 04/01/17 02:27 Urine RBC (Auto) 3 /hpf (0-3) 04/01/17 02:27 Ur Squamous Epith Cells 22 /hpf (0-5) H 04/01/17 02:27 Urine Bacteria Rare (<OCC) 04/01/17 02:27 C.trachomatis RNA (TMA) Not detected (Not Detected) 04/01/17 09:09 N.gonorrhoeae RNA (TMA) Not detected (Not Detected) 04/01/17 09:09 Blood Type O POSITIVE 04/01/17 07:05 Antibody Screen Negative 04/01/17 07:05 Discharge Exam - Head Exam Head Exam: ATRAUMATIC, NORMAL INSPECTION - Eye Exam Eye Exam: EOMI Pupil Exam: NORMAL ACCOMODATION - Respiratory Exam Respiratory Exam: Clear to PA & Lateral, NORMAL BREATHING PATTERN - Cardiovascular Exam Cardiovascular Exam: REGULAR RHYTHM, +S1, +S2 - GI/Abdominal Exam GI & Abdominal Exam: Normal Bowel Sounds, Soft Additional comments: see progress notes Discharge Plan - Follow Up Plan Condition: SERIOUS Disposition: HOME/ ROUTINE Patient education suggested?: Yes Additional Instructions: Follow up in Clinic this wek for incsion check , staple removal If fever, chestp pain, sob, dizzyness, lighthteanddd, pain go to ER continue your topamax and follow up with pcp you can take motrin 800mg over the counter eveyr 8 hours as needed fo rpain with food
[2017-04-06 07:49] VITALS: O2SAT 98
== END 2017-04-04 19:05 | disposition home or self-care (01) | DRG 742 ==
LOC: C.ER 01:26 → C.9E 06:44 → C.6T 14:15
PROVIDERS: ADMIT Obstetrics & Gynecology; ATTEND Obstetrics & Gynecology
PROC: 0UB04ZZ Excision of Right Ovary, Percutaneous Endoscopic Approach (ICD-10-PCS; principal; 2017-04-01 10:10)
DX: D27.0 Benign neoplasm of right ovary (principal); N83.511 Torsion of right ovary and ovarian pedicle; D64.9 Anemia, unspecified; N83.201 Unspecified ovarian cyst, right side; Z87.891 Personal history of nicotine dependence